=== PATIENT | female | born 1950 | race Caucasian/White ===

== ENCOUNTER 2016-10-20 15:45 | Outpatient (CLI) | payer MEDICARE, OTHER ==
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
== END 2016-10-20 15:46 | disposition home or self-care (01) ==
LOC: PC 15:45
PROVIDERS: ATTEND Nurse Practitioner Adult Health
DX: G20 Parkinson's disease (principal); S06.9X6 Unspecified intracranial injury with loss of consciousness greater than 24 hours without return to pre-existing conscious level with patient surviving; V49.60XA Unspecified car occupant injured in collision with unspecified motor vehicles in traffic accident, initial encounter; Y99.9 Unspecified external cause status; R32 Unspecified urinary incontinence; Z87.440 Personal history of urinary (tract) infections; R41.81 Age-related cognitive decline; R23.0 Cyanosis; G25.81 Restless legs syndrome; M17.4 Other bilateral secondary osteoarthritis of knee; M54.9 Dorsalgia, unspecified; F32.9 Major depressive disorder, single episode, unspecified; E03.9 Hypothyroidism, unspecified; R62.7 Adult failure to thrive; Z66 Do not resuscitate; Z51.5 Encounter for palliative care
CPT/HCPCS: 99350